=== PATIENT | female | born 1955 | race Caucasian/White ===

== ENCOUNTER → 2018-07-19 | Outpatient (CLI) | payer BC ==
--- NOTE | 2018-07-19 10:50 | US ---
EXAMINATION TYPE: US abdomen limited DATE OF EXAM: 07/19/2018 COMPARISON: NONE CLINICAL HISTORY: 63-year-old female R19.02 Left abdominal Mass. Palpable, bulging area seen left of umbilicus, possible hernia per patient, no pain involved, unknown how long it has been there. TECHNIQUE: Targeted ultrasound examination of the left periumbilical region at the site of visual abn ormality. FINDINGS: Large, septated cystic lesion underlying the palpable area of concern. Dimension of 22.4 x 14.6 x 12. 7cm. This area has no discernible origin that was seen by ultrasound today. Scanned left adnexa and s aw no obvious connection. IMPRESSION: Large 22.4 x 14.6 cm multi septated cystic lesion underlying the left abdominal palpable abnormality. Contrast enhanced CT recommended to further evaluate and determine etiology.
== END | disposition home or self-care (01) ==
LOC: RADUSWWP 08:17
PROVIDERS: ATTEND Internal Medicine Rheumatology
DX: R19.05 Periumbilic swelling, mass or lump (principal)
CPT/HCPCS: 76705

== ENCOUNTER 2018-11-01 10:40 | Inpatient (IN) | payer BC ==
[2018-10-25 15:50] VITALS: BMI 22.9
[~2018-11-01 10:40] MED LIST: DEXAMETHASONE SOD PHOSPHATE 10 MG/ML 1 ML VIAL IV ONE; HEPARIN SODIUM,PORCINE 5,000 UNIT/ML 1 ML VIAL SQ ONE; LIDOCAINE 1% 20 ML VIAL (10MG/ML) FOR IV START INTRADERMA PRN; MIDAZOLAM 2 MG/2 ML VIAL IV PRN; fentaNYL (PF) 50 MCG/ML 2 ML AMP IV PRN
[2018-11-01] MEDS: LACTATED RINGERS 1,000 ML IV SCH (11:28)
--- NOTE | 2018-11-01 11:28 | P.GSHP ---
History of Present Illness H&P Date: 11/01/18 Chief Complaint: Ventral hernia, abdominal cyst This is a 61-year-old female developed a ventral hernia. The hernia located in the midline near the umbilicus. She also has a left lower quadrant intra-abdominal cyst. Patient presents today for repair of ventral hernia and possible excision of intra-abdominal cyst. Past Medical History Past Medical History: Rheumatoid Arthritis (RA) Additional Past Medical History / Comment(s): "Was told by one doctor that I have a heart murmur, have never been told that by any other doctor, so I don't know if it's true." "I don't know what's going on, I've been to 3 [address] dr's and no one can tell me what's wrong, one Dr said I had poor kidney function in one kidney and that I have this mass in my abdomen that keeps getting bigger." History of Any Multi-Drug Resistant Organisms: None Reported Past Surgical History: No Surgical Hx Reported Additional Past Anesthesia/Blood Transfusion Reaction / Comment(s): Has never had general anesthesia. Past Psychological History: No Psychological Hx Reported Smoking Status: Never smoker Past Alcohol Use History: Rare Past Drug Use History: None Reported - Past Family History Mother Family Medical History: No Reported History Medications and Allergies Home Medications Medication Instructions Recorded Confirmed Type Arthritis Med (Unknown Name) 1 tab PO DIRECTED 10/25/18 10/25/18 History Ascorbic Acid [Vitamin C] 500 mg PO DAILY 10/25/18 10/25/18 History Vitamin B Complex 1 each PO DAILY 10/25/18 10/25/18 History Allergies Allergy/AdvReac Type Severity Reaction Status Date / Time No Known Allergies Allergy Verified 11/01/18 11:11 Surgical - Exam Vital Signs Temp Pulse Resp BP Pulse Ox 98.2 F 66 16 147/112 100 11/01/18 11:14 11/01/18 11:14 11/01/18 11:14 11/01/18 11:14 11/01/18 11:14 - General well developed, no distress - Eyes PERRL - ENT normal pinna - Neck no masses - Respiratory normal expansion - Cardiovascular Rhythm: regular - Abdomen 5 cm ventral hernia located in the subumbilical position. There is a 10 cm cystic mass palpable in the left lower quadrant. Abdomen: soft, non tender Assessment and Plan Assessment: Original hernia Antral bowel cyst We'll perform repair of ventral hernia possible excision of intra-abdominal cyst.
[2018-11-01] MEDS ORDERED: ONDANSETRON 4 MG/2 ML VIAL IVP ONE (11:36)
[2018-11-01] MEDS ORDERED: DEXAMETHASONE SOD PHOSPHATE 10 MG/ML 1 ML VIAL IV ONE (11:36)
[2018-11-01] MEDS ORDERED: MIDAZOLAM (PF) 2 MG/2 ML VIAL IV ONE (11:41)
[2018-11-01] MEDS ORDERED: ROPIVACAINE 5 MG/ML 30 ML VIAL ONE (11:45)
[2018-11-01] MEDS ORDERED: ESMOLOL 100 MG/10 ML VIAL ONE (11:45)
[2018-11-01] MEDS ORDERED: LIDOCAINE 1%-EPI 1:100,000 20 ML VIAL SQ ONE (11:54)
--- NOTE | 2018-11-01 12:04 | P.PN ---
Progress Note - Text Progress Note Date: 11/01/18 The patient was brought to the operating room. When she was docked to the monitors in the operating room she is noted to be tachycardic with pulse in the 140-150 range. At this point her procedure was canceled. Patient was sent to recovery room for cardiology consultation.
[2018-11-01] MEDS ORDERED: LACTATED RINGERS 1,000 ML IV ONE (12:12)
--- NOTE | 2018-11-01 12:54 | P.CRDCN ---
History of Present Illness History of present illness: This is a 63-year-old female past medical history significant for rheumatoid arthritis. She denies history of hypertension, dyslipidemia, coronary artery disease or diabetes mellitus. She is quite adamant that she has no previous medical history and does not take medications. She is here in the hospital for an elective outpatient ventral hernia repair with Dr. Garcia. We have been asked to see her in consultation secondary to tachycardia. She was being taken into the OR and prior to anesthesia administration her heart rate was noted to be 150. EKG was obtained revealing atrial fibrillation with rapid ventricular response and non-specific ST abnormalities. Patient is quite tearful and aggressive during exam. She is quite hesitant to have anything done and is considering signing out against medical advice. She denies feeling palpitations. No chest pain, shortness of breath or dizziness. She states she is under significant amount of stress regarding this operation. At the time of my exam: CONSTITUTIONAL: Denies fever. Denies chills. EYES: Denies blurred vision. Denies vision changes. Denies eye pain. EARS, NOSE, MOUTH & THROAT: Denies headache. Denies sore throat. Denies ear pain. CARDIOVASCULAR: Denies chest pain. Denies shortness of breath. Denies orthopnea. Denies PND. Denies palpitations. RESPIRATORY: Denies cough. GASTROINTESTINAL: Denies abdominal pain. Denies diarrhea. Denies constipation. Denies nausea. Denies vomiting. MUSCULOSKELETAL: Denies myalgias. INTEGUMENTARY: Denies pruitis. Denies rash. NEUROLOGIC: Denies numbness. Denies tingling. Denies weakness. PSYCHIATRIC: Denies anxiety. Denies depression. ENDOCRINE: Denies fatigue. Denies weight change. Denies polydipsia. Denies polyurina. GENITOURINARY: Denies burning, hematuria or urgency with micturation. HEMATOLOGIC: Denies history of anemia. Denies bleeding. Blood pressure 145/89 heart rate 170 GENERAL: This is a 63-year-old female in no apparent distress at the time of my examination. HEENT: Head is atraumatic, normocephalic. Pupils are equal, round. Sclerae an icteric. Conjunctivae are clear. Mucous membranes of the mouth are moist. Neck is supple. There is no jugular venous distention. No carotid bruit is heard. LUNGS: Clear to auscultation no wheezes, rales or rhonchi. No chest wall tenderness is noted on palpation or with deep breathing. HEART: Irregular rate and rhythm with systolic ejection murmur at the left sternal border, no rubs or gallops. S1 and S2 heard. ABDOMEN: Soft, nontender. Bowel sounds are heard. No organomegaly noted. EXTREMITIES: No evidence of peripheral edema and no calf tenderness noted. VASCULAR: Radial and dorsalis pedis pulses palpated, no evidence of clubbing. NEUROLOGIC: Patient is awake, alert and oriented x3. ASSESSMENT New onset paroxysmal atrial fibrillation with rapid ventricular response Ventral hernia Rheumatoid arthritis PLAN After leaving disaster recovery coordinator called to notify she spontaneously converted to sinus. Repeat EKG requested. Obtain 2D echocardiogram and doppler study to assess cardiac structure and function. Check electrolytes and TSH. Initiate on small dose of lopressor 25 mg BID. If echo and lytes are normal she may proceed with scheduled surgery. Recommend eliquis 5 mg BID to be initiated after surgery for thromboembolic protection. This has been explained to the patient in great detail. Further recommendations to follow based on clinical course. Thank you kindly for this consultation. Nurse Practitioner note has been reviewed, I agree with a documented findings and plan of care. Patient was seen and examined. Past Medical History Past Medical History: Rheumatoid Arthritis (RA) Additional Past Medical History / Comment(s): "Was told by one doctor that I have a heart murmur, have never been told that by any other doctor, so I don't know if it's true." "I don't know what's going on, I've been to 3 [address] dr's and no one can tell me what's wrong, one Dr said I had poor kidney function in one kidney and that I have this mass in my abdomen that keeps getting bigger." History of Any Multi-Drug Resistant Organisms: None Reported Past Surgical History: No Surgical Hx Reported Additional Past Anesthesia/Blood Transfusion Reaction / Comment(s): Has never had general anesthesia. Past Psychological History: No Psychological Hx Reported Smoking Status: Never smoker Past Alcohol Use History: Rare Past Drug Use History: None Reported - Past Family History Mother Family Medical History: No Reported History Medications and Allergies Home Medications Medication Instructions Recorded Confirmed Type Arthritis Med (Unknown Name) 1 tab PO DIRECTED 10/25/18 10/25/18 History Ascorbic Acid [Vitamin C] 500 mg PO DAILY 10/25/18 10/25/18 History RX: Vitamin B Complex 1 each PO DAILY 10/25/18 10/25/18 History Allergies Allergy/AdvReac Type Severity Reaction Status Date / Time No Known Allergies Allergy Verified 11/01/18 11:11 Physical Exam Vitals: Vital Signs Temp Pulse Resp BP Pulse Ox 11/01/18 11:37 145/89 11/01/18 11:14 98.2 F 66 16 147/112 100 Intake and Output 10/31/18 11/01/18 11/01/18 22:59 06:59 14:59 Intake Total 1000 Balance 1000 Intake: IV 1000 Results Current Medications Generic Name Dose Route Start Last Admin Trade Name Freq PRN Reason Stop Dose Admin Lactated Ringer's 1,000 mls @ 20 mls/hr 10/29/18 13:30 11/01/18 11:28 Lactated Ringers IV 1,000 mls .Q24H SABINO Administration Lidocaine HCl 0.1 ml 10/29/18 13:16 11/01/18 11:28 .Xylocaine 1% Inj (10mg/Ml) For Iv Start INTRADERMA 0.1 ml PER PROTOCOL PRN Administration IV Start Metoprolol Tartrate 25 mg 11/01/18 13:00 Lopressor PO BID SABINO Intake and Output 10/31/18 11/01/18 11/01/18 22:59 06:59 14:59 Intake Total 1000 Balance 1000 Intake: IV 1000
[2018-11-01 13:00] LABS: Anisocytosis Slight; Basophils # (A) 0.1 k/uL (0-0.2); Basophils % (A) 1 %; Eosinophils # (A) 0.2 k/uL (0-0.7); Eosinophils % (A) 5 %; HCT 37.8 % (34.0-46.0); HGB 12.1 gm/dL (11.4-16.0); Lymphocytes % (A) 21 %; MCH 25.7 pg (25.0-35.0); MCV 80.3 fL (80.0-100.0); Mean Platelet Volume 7.1; Microcytosis Slight; Monocytes # (A) 0.3 k/uL (0-1.0); Monocytes % (A) 7 %; Neutrophils # (A) 3.2 k/uL (1.3-7.7); Neutrophils % (A) 64 %; Platelet Count 290 k/uL (150-450); RDW 17.7 % (11.5-15.5); WBC 4.9 k/uL (3.8-10.6)
[2018-11-01] MEDS ORDERED: METOPROLOL TARTRATE 25 MG TAB PO SCH (13:00)
[2018-11-01 13:06] LABS: Calcium 9.8 mg/dL (8.4-10.2); Potassium 3.6 mmol/L (3.5-5.1)
[2018-11-01] MEDS ORDERED: PROPAFENONE 150 MG TAB PO STA (13:26)
[2018-11-01] MEDS ORDERED: METOPROLOL TARTRATE 5 MG/5 ML VIAL IVP ONE ×3 (13:56→14:47)
[2018-11-01] MEDS: APIXABAN 5 MG TAB PO SCH (14:10)
[2018-11-02] MEDS: APIXABAN 5 MG TAB PO SCH ×3 (00:06→08:33)
[2018-11-02] MEDS: METOPROLOL TARTRATE 25 MG TAB PO SCH ×4 (00:06→08:33)
[2018-11-02] MEDS: FLECAINIDE 50 MG TAB PO SCH ×2 (00:15→08:33)
[2018-11-02] MEDS: LACTATED RINGERS 1,000 ML IV SCH ×3 (00:54→06:21)
[2018-11-02 11:43] VITALS: TEMP 97.8
--- NOTE | 2018-11-02 12:06 | P.PN ---
Progress Note - Text Progress Note Date: 11/02/18 The patient feels well. She denies any tachycardia today. On exam her vital signs are stable. Soft. Patiently discharged home today.
--- NOTE | 2018-11-02 12:07 | P.DS ---
Providers Date of admission: 11/01/18 15:52 Expected date of discharge: 11/02/18 Attending physician: Logan Blakely Consults: 11/01/18 12:15 Consult Physician Stat Consulting Provider: Aries Boateng Consult Reason/Comments: SVT Do you want consulting provider notified?: Yes Primary care physician: Horacio Pal[facility] Course: This is a 63-year-old female who was scheduled for hernia repair. Patient's case was canceled due to significant tachycardia related to uncontrolled A. fib. Patient was another cardiology. Patient was discharged home after 24 hours. Patient Condition at Discharge: Good Plan - Discharge Summary Discharge Rx Participant: No New Discharge Prescriptions: No Action Ascorbic Acid [Vitamin C] 500 mg PO DAILY Vitamin B Complex 1 each PO DAILY Discharge Medication List Ascorbic Acid [Vitamin C] 500 mg PO DAILY 10/25/18 [History] Vitamin B Complex 1 each PO DAILY 10/25/18 [History] Follow up Appointment(s)/Referral(s): Logan Blakely MD [STAFF PHYSICIAN] - 11/09/18 2:25 pm Activity/Diet/Wound Care/Special Instructions: pt qualifies for $10/mo loc[facility] miranda coujono
--- NOTE | 2018-11-02 12:58 | P.PN ---
Subjective Progress Note Date: 11/02/18 This is a 63-year-old female past medical history significant for rheumatoid arthritis. She denies history of hypertension, dyslipidemia, coronary artery disease or diabetes mellitus. She is quite adamant that she has no previous medical history and does not take medications. Cardiology consu ltation was requested yesterday, patient was scheduled to go and have an elective ventral hernia repair, prior to the surgery starting she was in atrial fibrillation with a heart rate of 150. She did spontaneously convert to sinus and again went into atrial fibrillation. The patient was given a dose of Rythmol yesterday, converted to normal sinus rhythm. She remains in a normal sinus rhythm this morning. Echocardiogram with Doppler study is yet pending. Blood pressure 140/80 with a heart rate in the 60s, 97% on room air. Patient will continue on Eliquis 5 mg one tablet by mouth twice a day along with flecainide 50 twice a day and metoprolol 25 mg by mouth twice a day. She may be able to be discharged home today from our perspective, we will make her a follow-up appointment to see Dr. adam galloway in the office post discharge. Within one month or so patient will be able to have her elective surgery. This will be discussed in more detail at the follow-up appointment. Objective - Vital Signs Vital signs: Vital Signs Temp 97.8 F 11/02/18 08:00 Pulse 66 11/02/18 08:00 Resp 15 11/02/18 08:00 BP 155/84 11/02/18 08:00 Pulse Ox 99 11/02/18 08:00 Intake & Output 11/01/18 11/02/18 11/02/18 18:59 06:59 18:59 Intake Total 1000 600 Balance 1000 600 Weight 72.1 kg Intake: IV 1000 Oral 600 Other: Voiding Method Toilet # Voids 2 - Exam PHYSICAL EXAMINATION: GENERAL: 63-year-old female in no acute distress at the time of my examination HEENT: Head is atraumatic, normocephalic. Pupils equal, round. Sclera anicteric. Conjunctiva are clear. Mucous membranes of the mouth are moist. Neck is supple. There is no elevated jugular venous pressure. No carotid bruit is heard. HEART EXAMINATION: Heart S1 S2 1 systolic ejection murmur is heard CHEST EXAMINATION: Lungs are clear to auscultation and precussion. No chest wall tenderness is noted on palpation or with deep breathing. ABDOMEN: Soft, nontender. Bowel sounds are heard. No organomegaly noted. EXTREMITIES: 2+ peripheral pulses with no evidence of peripheral edema and no calf tenderness noted. NEUROLOGIC patient is awake, alert and oriented 3 . - Labs CBC & Chem 7: 11/01/18 07:53 11/01/18 07:53 Labs: Abnormal Lab Results - Last 24 Hours (Table) 11/01/18 Range/Units 07:53 RDW 17.7 H (11.5-15.5) % Assessment and Plan Plan: Assessment and plan #1 paroxysmal atrial fibrillation #2 ventral hernia requiring elective surgery #3 rheumatoid arthritis Plan From cardiology's perspective, the patient may be able to be discharged home today. We'll make her a follow-up appointment in the office in one week. Discharged home on flecainide and beta scarlett along with Eliquis. DNP note has been reviewed, I agree with a documented findings and plan of care. Patient was seen and examined.
--- NOTE | 2018-11-02 13:36 | ECHOF ---
Referral Reason: MEASUREMENTS -------- HEIGHT: 0.0 cm WEIGHT: 0.0 kg BP: IVSd: 1.5 cm (0.6 - 1.1) LVIDd: 3.1 cm (3.9 - 5.3) LVPWd: 1.4 cm (0.6 - 1.1) IVSs: 1.6 cm LVIDs: 2.0 cm LVPWs: 1.6 cm Ao Diam: 3.4 cm (2.0 - 3.7) AV Cusp: 1.8 cm (1.5 - 2.6) LA Diam: 3.4 cm (2.7 - 3.8) MV E Husam: 0.97 m/s MV DecT: 164 ms MV A Husam: 0.65 m/s MV E/A Ratio: 1.48 RAP: 5.00 mmHg RVSP: 16.24 mmHg FINDINGS -------- Atrial fibrillation. This was a technically adequate study. The left ventricular size is normal. There is moderate concentric left ventricular hypertrophy. O verall left ventricular systolic function is normal with, an EF between 55 - 60 %. The right ventricle is normal in size. Normal LA size by volume 22+/-6 ml/m2. The right atrial size is normal. Interatrial and interventricular septum intact. The aortic valve is trileaflet and appears structurally normal. The mitral valve is normal. There is trace mitral regurgitation. The tricuspid valve appears structurally normal. Trace tricuspid regurgitation present. There is no pulmonic regurgitation present. The aortic root size is normal. Normal inferior vena cava with normal inspiratory collapse consistent with estimated right atrial pre ssure of 5 mmHg. There is no pericardial effusion. CONCLUSIONS -------- 1. Atrial fibrillation. 2. This was a technically adequate study. 3. The left ventricular size is normal. 4. There is moderate concentric left ventricular hypertrophy. 5. Overall left ventricular systolic function is normal with, an EF between 55 - 60 %. 6. The right ventricle is normal in size. 7. Normal LA size by volume 22+/-6 ml/m2. 8. The right atrial size is normal. 9. Interatrial and interventricular septum intact. 10. The aortic valve is trileaflet and appears structurally normal. 11. The mitral valve is normal. 12. There is trace mitral regurgitation. 13. The tricuspid valve appears structurally normal. 14. Trace tricuspid regurgitation present. 15. There is no pulmonic regurgitation present. 16. The aortic root size is normal. 17. Normal inferior vena cava with normal inspiratory collapse consistent with estimated right atrial pressure of 5 mmHg. 18. There is no pericardial effusion. VIDEO SYSTEM REPAIRER: Anita Tovar RDCS
[2018-11-02 15:05] VITALS: BP 102/63; PULSE 68; RESP 16
[2018-11-02] MEDS ORDERED: METOPROLOL TARTRATE 25 MG TAB PO SCH (21:00)
== END 2018-11-02 14:55 | disposition home or self-care (01) | DRG 310 ==
LOC: OR 10:40 → 3SCARD 15:52
PROVIDERS: ADMIT Surgery; ATTEND Surgery
DX: I48.0 Paroxysmal atrial fibrillation (principal); Z53.9 Procedure and treatment not carried out, unspecified reason; K43.9 Ventral hernia without obstruction or gangrene; M06.9 Rheumatoid arthritis, unspecified; M19.90 Unspecified osteoarthritis, unspecified site; Z79.899 Other long term (current) drug therapy
CPT/HCPCS: 80048; 83735; 85025; 93005; 93306

== ENCOUNTER → 2019-01-15 | Outpatient (CLI) | payer BC ==
--- NOTE | 2019-01-17 08:07 | CT ---
EXAMINATION TYPE: CT abdomen pelvis w con DATE OF EXAM: 01/15/2019 COMPARISON: 08/24/2018 HISTORY: K65.1 Peritoneal cyst, K42.0 Umbilical hernia CONTRAST: CT scan of the abdomen and pelvis is performed with Oral Contrast and with IV Contrast, patient injec devante with 100 mL of Isovue 300. FINDINGS: LUNG BASES-: No visible nodule. No infiltrate. LIVER/GB: No calcified gallstones. 3 or 4 hepatic cysts are again noted the largest of which is see n within the left hepatic lobe lateral segment measuring 1.5 cm. Biliary tree is of normal caliber. PANCREAS: No inflammation. No distinct mass. SPLEEN: No splenic enlargement. No lesion seen. ADRENALS: No nodule. No thickening. KIDNEYS/BLADDER: Marked left-sided hydronephrosis is much improved although is considered severe at t his time. There is renal parenchymal thinning. Decreased perfusion of the left kidney. No nephrolithi asis. No distinct renal mass. Urinary bladder grossly unremarkable. BOWEL: Normal appendix. Normal bowel caliber. No inflammation. GENITAL ORGANS: No gross abnormality. LYMPH NODES: No greater than 1cm abdominal or pelvic lymph nodes are appreciated. AORTA: No significant abnormality. OSSEOUS STRUCTURES: No significant abnormality is seen. OTHER: Small fat-containing umbilical hernia. IMPRESSION: 1. Marked left-sided hydronephrosis is much improved although is considered severe at this time. Ther e is renal parenchymal thinning. Decreased perfusion of the left kidney. 2. Small fat-containing umbilical hernia.
== END | disposition home or self-care (01) ==
LOC: RADCTMAIN 10:49
PROVIDERS: ATTEND Surgery
DX: N13.30 Unspecified hydronephrosis (principal); K42.9 Umbilical hernia without obstruction or gangrene; R93.429 Abnormal radiologic findings on diagnostic imaging of unspecified kidney; R93.422 Abnormal radiologic findings on diagnostic imaging of left kidney
CPT/HCPCS: 74177; Q9967

== ENCOUNTER 2019-02-22 08:14 | Day surgery (SDC) | payer BC ==
[~2019-02-22 08:14] MED LIST changes: +HYDROmorphone 0.5 MG/0.5 ML SYRINGE IVP PRN; +LACTATED RINGERS 1,000 ML IV SCH; +ONDANSETRON 4 MG/2 ML VIAL IVP ONE; +SCOPOLAMINE 1.5MG/72HR PATCH TRANSDERM ONE; -fentaNYL (PF) 50 MCG/ML 2 ML AMP IV PRN
[2019-02-22 08:42] VITALS: TEMP 97.9
[2019-02-22 09:09] LABS: Basophils # (A) 0.1 k/uL (0-0.2); Basophils % (A) 1 %; Eosinophils # (A) 0.3 k/uL (0-0.7); Eosinophils % (A) 6 %; HCT 37.5 % (34.0-46.0); HGB 12.4 gm/dL (11.4-16.0); Lymphocytes # (A) 1.2 k/uL (1.0-4.8); Lymphocytes % (A) 20 %; MCH 27.5 pg (25.0-35.0); MCHC 33.2 g/dL (31.0-37.0); MCV 82.8 fL (80.0-100.0); Mean Platelet Volume 7.6; Monocytes # (A) 0.4 k/uL (0-1.0); Monocytes % (A) 7 %; Neutrophils # (A) 3.7 k/uL (1.3-7.7); Neutrophils % (A) 64 %; Platelet Count 344 k/uL (150-450); RBC 4.53 m/uL (3.80-5.40); RDW 13.5 % (11.5-15.5); WBC 5.8 k/uL (3.8-10.6)
[2019-02-22] MEDS ORDERED: MIDAZOLAM 2 MG/2 ML VIAL IV ONE (09:22)
--- NOTE | 2019-02-22 10:12 | P.GSHP ---
History of Present Illness H&P Date: 02/22/19 Chief Complaint: Incarcerated umbilical hernia This is a 64-year-old female who presents today for laparoscopic robotic- assisted repair of incarcerated umbilical hernia. Patient developed a 3 cm mass at her umbilicus. Past Medical History Past Medical History: Atrial Fibrillation, Rheumatoid Arthritis (RA) Additional Past Medical History / Comment(s): "Was told by one doctor that I have a heart murmur, have never been told that by any other doctor, so I don't know if it's true." one Dr said I had poor kidney function in one kidney possible fluid filled kidney by CT scan that has resolved History of Any Multi-Drug Resistant Organisms: None Reported Past Surgical History: No Surgical Hx Reported Past Anesthesia/Blood Transfusion Reactions: No Reported Reaction Additional Past Anesthesia/Blood Transfusion Reaction / Comment(s): Has never had general anesthesia. Smoking Status: Never smoker - Past Family History Mother Family Medical History: No Reported History Medications and Allergies Home Medications Medication Instructions Recorded Confirmed Type Flecainide [Tambocor] 100 mg PO BID 02/21/19 02/22/19 History Metoprolol Tartrate [Lopressor] 25 mg PO DAILY 02/21/19 02/22/19 History Allergies Allergy/AdvReac Type Severity Reaction Status Date / Time No Known Allergies Allergy Verified 02/22/19 08:35 Surgical - Exam Vital Signs Temp Pulse Resp BP Pulse Ox 97.9 F 64 18 158/99 97 02/22/19 08:40 02/22/19 08:40 02/22/19 08:40 02/22/19 08:40 02/22/19 08:40 - General well developed, well nourished, no distress - Eyes PERRL - ENT normal pinna, normal nares - Neck no masses - Respiratory normal expansion - Cardiovascular Rhythm: regular - Abdomen Abdomen: soft, non tender Hernia: umbilical (Incarcerated umbilical hernia) Results - Labs 02/22/19 08:56 Assessment and Plan Assessment: Incarcerated umbilical hernia. We'll perform laparoscopic robotic-assisted repair.
[2019-02-22] MEDS ORDERED: KETOROLAC 30 MG/ML 1 ML VIAL ONE (10:37)
[2019-02-22] MEDS ORDERED: KETAMINE 10 MG/ML 20 ML VIAL ONE (10:37)
[2019-02-22] MEDS ORDERED: NEOSTIGMINE 1 MG/ML 10 ML VIAL ONE (10:37)
[2019-02-22] MEDS ORDERED: ePHEDrine SULFATE/0.9% NACL/PF 50 MG/5 ML SYRINGE IV ONE (10:37)
[2019-02-22] MEDS ORDERED: SUCCINYLCHOLINE CHLORIDE 100 MG/5 ML SYR IV ONE (10:37)
[2019-02-22] MEDS ORDERED: MIDAZOLAM 2 MG/2 ML VIAL ONE (10:37)
[2019-02-22] MEDS ORDERED: LIDOCAINE 1% INJ 10MG/ML (20 ML MDV) ONE (10:37)
[2019-02-22] MEDS ORDERED: fentaNYL (PF) 50 MCG/ML 2 ML AMP ONE (10:37)
[2019-02-22] MEDS ORDERED: ROPIVACAINE 5 MG/ML 30 ML VIAL ONE (10:37)
[2019-02-22] MEDS ORDERED: PROPOFOL 10 MG/ML 20 ML VIAL IV ONE (10:37)
[2019-02-22] MEDS ORDERED: GLYCOPYRROLATE 0.2 MG/ML 2 ML VIAL ONE (10:37)
[2019-02-22] MEDS ORDERED: ROCURONIUM BROMIDE 10 MG/ML 10 ML VIAL IV ONE (10:37)
--- NOTE | 2019-02-22 10:37 | P.ANPRN ---
Procedure Note - Anesthesia - Nerve Block Performed Bilateral Transversus Abdominis Single Time Out Performed: Yes Date of Procedure: 02/22/19 Procedure Start Time: Procedure Stop Time: Location of Patient: PreOp Indication: Acute Post-Operative Pain, Analgesia, Requested by Surgeon Sedation Type: Sedate with meaningful contact maintained Preparation: Sterile Prep Position: Supine Catheter: None Needle Types: Pajunk Needle Gauge: 21 Ultrasound used to visualize needle placement: Yes Ultrasound used to observe medication spread: Yes Injectate: 0.5% Ropivacaine (see comment for volume) (15cc each side) Blood Aspirated: No Pain Paresthesia on Injection Noted: No Resistance on Injection: Normal Image Stored and Saved: Yes Events: Uneventful and Well Tolerated
[2019-02-22] MEDS ORDERED: BUPIVACAIN-EPI 0.25%-1:200,000 30 ML VIAL SQ ONE ×2 (10:40)
[2019-02-22] MEDS ORDERED: LACTATED RINGERS 1,000 ML IV ONE (11:11)
--- NOTE | 2019-02-22 11:27 | P.OP ---
Date of Procedure: 02/22/19 Preoperative Diagnosis: Incarcerated umbilical hernia Postoperative Diagnosis: Incarcerated umbilical hernia Procedure(s) Performed: Laparoscopic robotic repair of incarcerated umbilical hernia Anesthesia: ELPIDIO Surgeon: Logan Blakely Estimated Blood Loss (ml): 5 Pathology: other (Incarcerated omentum) Condition: stable Disposition: PACU Description of Procedure: MThe patient was placed on the operating table in the supine position. He received general anesthesia. His abdomen was prepped and draped usual fashion. Using a 5 mm optical trocar under direct visualization the peritoneal cavity was entered in the left upper quadrant. The abdomen was then insufflated. The laparoscope was placed back into the perineal cavity. Next a 8 mm robotic trocar was placed in the left lower quadrant and a 12 mm robotic trocar was placed in the left lateral position. The original 5 mm trocar was exchanged for a 8 mm robotic trocar. The patient's placed in the left side up position. And the patient was undocked the robot. The umbilical hernia was visualized. Using hook cautery the incarcerated omentum was dissected free and sent to pathology. Using hook cautery the peritoneum over the umbilical hernia was excised. The fascial opening was repaired using 0V LOC suture. Next a piece of 11 cm round ventral light ST mesh was placed into the. Cavity and secured with 2 OV lock suture. The patient was undocked the robot. The needles were retrieved. The fascia of the 12 mm trocar site was closed with 0 Ethibond suture. Skin was closed interrupted 3-0 Monocryl suture. Dermabond dressings was applied. Patient top procedure well and was sent to recovery room stable condition.
[2019-02-22 12:35] VITALS: RESP 16
[2019-02-22 13:00] VITALS: BP 136/82; PULSE 66
== END 2019-02-22 13:46 | disposition home or self-care (01) ==
LOC: OR 08:14
PROVIDERS: ATTEND Surgery
DX: K42.0 Umbilical hernia with obstruction, without gangrene (principal); I48.91 Unspecified atrial fibrillation; M06.9 Rheumatoid arthritis, unspecified; Z79.899 Other long term (current) drug therapy
CPT/HCPCS: 64488; 88305; 85025; 49653; C1781; J2250; J1644; J1100; J2710; J0690; J2405; J2001; J3010; J1885; J2795; J0330; J2704

== ENCOUNTER 2019-02-27 23:59 | Observation (INO) | payer BC ==
--- NOTE | 2019-02-28 00:38 | ED ---
Arrhythmia/Palpitations HPI - General Chief Complaint: Arrhythmia/Palpitations Stated Complaint: Palpitations Time Seen by Provider: 02/28/19 00:07 Source: patient, family Mode of arrival: wheelchair Limitations: no limitations - History of Present Illness Initial Comments: this patient is a 64-year-old woman who presents because she believes she has sloan d a recurrence of atrial fibrillation. The patient states that she had surgery approximately a week ago. She had a hernia repair (02/22/[address] Blakely), and has been doing well since that time. Tonight she had been at home, relaxing when she noticed that her heart started beating rapidly and irregularly. She does have history of having a paroxysm of atrial fibrillation a few weeks ago, when she was being prepped for surgery initially. The patient states that her surgery was delayed, she had cardiology clearance. She had gone back into sinus rhythm and had remained in sinus rhythm. The patient states that after she was cleared for surgery she had been given metoprolol and Shamika anaide to take for 1 week prior to surgery and then to continue weeks post surgery. she states she had taken the medication as directed but believes she has gone back in atrial fibrillation. Complaint: rapid heart beat -: hour(s) Context: occurred during rest Arrhythmia History: atrial fibrillation (paroxysmal) Associated Symptoms: denies other symptoms - Related Data Home Medications Medication Instructions Recorded Confirmed Flecainide Acetate 100 mg PO BID 02/28/19 02/28/19 Metoprolol Succinate (ER) [Toprol 25 mg PO DAILY 02/28/19 02/28/19 XL] Previous Rx's Medication Instructions Recorded Apixaban [Eliquis] 5 mg PO BID #60 tab 02/28/19 Allergies Allergy/AdvReac Type Severity Reaction Status Date / Time No Known Allergies Allergy Verified 02/28/19 09:44 Review of Systems ROS Statement: Those systems with pertinent positive or pertinent negative responses have been documented in the HPI. ROS Other: All systems not noted in ROS Statement are negative. Constitutional: Denies: fever, chills Respiratory: Denies: cough, dyspnea Cardiovascular: Reports: palpitations. Denies: chest pain, edema, syncope Gastrointestinal: Denies: abdominal pain, nausea, vomiting, diarrhea, melena, hematochezia Genitourinary: Denies: dysuria, hematuria Musculoskeletal: Denies: back pain Skin: Denies: rash Neurological: Denies: headache Past Medical History Past Medical History: Atrial Fibrillation, Rheumatoid Arthritis (RA) Additional Past Medical History / Comment(s): "Was told by one doctor that I have a heart murmur, have never been told that by any other doctor, so I don't know if it's true." one Dr said I had poor kidney function in one kidney possible fluid filled kidney by CT scan that has resolved History of Any Multi-Drug Resistant Organisms: None Reported Past Surgical History: Hernia Repair Past Anesthesia/Blood Transfusion Reactions: No Reported Reaction Additional Past Anesthesia/Blood Transfusion Reaction / Comment(s): Has never had general anesthesia. Past Psychological History: No Psychological Hx Reported Smoking Status: Never smoker Past Alcohol Use History: None Reported Past Drug Use History: None Reported - Past Family History Mother Family Medical History: No Reported History Father Additional Family Medical History / Comment(s): Father was a alcoholic and young. General Exam Limitations: no limitations General appearance: alert, in no apparent distress Head exam: Present: atraumatic, normocephalic Eye exam: Present: normal appearance. Absent: scleral icterus, conjunctival injection Neck exam: Present: normal inspection Respiratory exam: Present: normal lung sounds bilaterally. Absent: respiratory distress, wheezes, rales, rhonchi, stridor Cardiovascular Exam: Present: tachycardia, irregular rhythm, normal heart sounds. Absent: systolic murmur, diastolic murmur, rubs, gallop GI/Abdominal exam: Present: soft, other (patient's surgical incisions are closed, dry, intact without any warmth or erythema.). Absent: distended, tenderness, guarding, rebound, rigid, mass, pulsatile mass, hernia Extremities exam: Present: normal inspection, normal capillary refill. Absent: pedal edema, calf tenderness Back exam: Present: normal inspection. Absent: CVA tenderness (R), CVA tenderness (L) Neurological exam: Present: alert Skin exam: Present: warm, dry, intact, normal color. Absent: rash Course Vital Signs 02/28/19 02/28/19 02/28/19 00:01 01:00 02:00 Temperature 97.7 F Pulse Rate 121 H 124 H 128 H Pulse Rate [ Pulse Oximetery ] Respiratory 20 18 18 Rate Blood Pressure 165/92 160/108 149/107 Blood Pressure [Left Arm] O2 Sat by Pulse 96 Oximetry 02/28/19 02/28/19 02/28/19 03:00 04:00 05:00 Temperature Pulse Rate 126 H 117 H 114 H Pulse Rate [ Pulse Oximetery ] Respiratory 18 18 18 Rate Blood Pressure 144/99 128/79 110/94 Blood Pressure [Left Arm] O2 Sat by Pulse Oximetry 02/28/19 02/28/19 06:00 07:15 Temperature 97.7 F Pulse Rate 117 H Pulse Rate [ 80 Pulse Oximetery ] Respiratory 18 16 Rate Blood Pressure 121/91 Blood Pressure 159/94 [Left Arm] O2 Sat by Pulse 98 Oximetry EKG Findings - EKG Results: EKG: interpreted by ERMD, normal axis, normal QRS, normal ST/T - Dysrhythmias: Supraventricular dysrhythmia: atrial fibrillation (with rate approximately 150 bpm) Medical Decision Making - Medical Decision Making patient is 64-year-old woman with paroxysmal atrial fibrillation. She did have recurrence of this tonight with elevated rate. She was given extra doses of flecainide but remained tachycardic in atrial fibrillation. Patient be admitted to have cardiology consultation. - Lab Data Result diagrams: 02/28/19 00:15 02/28/19 00:15 Lab Results 02/28/19 02/28/19 02/28/19 Range/Units 00:15 00:15 00:15 WBC 6.2 (3.8-10.6) k/uL RBC 4.91 (3.80-5.40) m/uL Hgb 13.0 (11.4-16.0) gm/dL Hct 40.8 (34.0-46.0) % MCV 83.2 (80.0-100.0) fL MCH 26.6 (25.0-35.0) pg MCHC 31.9 (31.0-37.0) g/dL RDW 13.4 (11.5-15.5) % Plt Count 358 (150-450) k/uL Neutrophils % 54 % Lymphocytes % 26 % Monocytes % 8 % Eosinophils % 7 % Basophils % 2 % Neutrophils # 3.4 (1.3-7.7) k/uL Lymphocytes # 1.6 (1.0-4.8) k/uL Monocytes # 0.5 (0-1.0) k/uL Eosinophils # 0.4 (0-0.7) k/uL Basophils # 0.1 (0-0.2) k/uL PT 9.6 (9.0-12.0) sec INR 0.9 (<1.2) APTT 25.9 (22.0-30.0) sec Sodium 141 (137-145) mmol/L Potassium 4.1 (3.5-5.1) mmol/L Chloride 108 H (98-107) mmol/L Carbon Dioxide 25 (22-30) mmol/L Anion Gap 8 mmol/L BUN 18 H (7-17) mg/dL Creatinine 0.99 (0.52-1.04) mg/dL Est GFR (CKD-EPI)AfAm 70 (>60 ml/min/1.73 sqM) Est GFR (CKD-EPI)NonAf 61 (>60 ml/min/1.73 sqM) Glucose 98 (74-99) mg/dL Calcium 9.8 (8.4-10.2) mg/dL Magnesium 2.2 (1.6-2.3) mg/dL Total Bilirubin 0.4 (0.2-1.3) mg/dL AST 26 (14-36) U/L ALT 23 (4-34) U/L Alkaline Phosphatase 99 (38-126) U/L Troponin I (0.000-0.034) ng/mL Total Protein 7.3 (6.3-8.2) g/dL Albumin 4.2 (3.5-5.0) g/dL TSH 1.730 (0.465-4.680) mIU/L 02/28/19 Range/Units 00:15 WBC (3.8-10.6) k/uL RBC (3.80-5.40) m/uL Hgb (11.4-16.0) gm/dL Hct (34.0-46.0) % MCV (80.0-100.0) fL MCH (25.0-35.0) pg MCHC (31.0-37.0) g/dL RDW (11.5-15.5) % Plt Count (150-450) k/uL Neutrophils % % Lymphocytes % % Monocytes % % Eosinophils % % Basophils % % Neutrophils # (1.3-7.7) k/uL Lymphocytes # (1.0-4.8) k/uL Monocytes # (0-1.0) k/uL Eosinophils # (0-0.7) k/uL Basophils # (0-0.2) k/uL PT (9.0-12.0) sec INR (<1.2) APTT (22.0-30.0) sec Sodium (137-145) mmol/L Potassium (3.5-5.1) mmol/L Chloride (98-107) mmol/L Carbon Dioxide (22-30) mmol/L Anion Gap mmol/L BUN (7-17) mg/dL Creatinine (0.52-1.04) mg/dL Est GFR (CKD-EPI)AfAm (>60 ml/min/1.73 sqM) Est GFR (CKD-EPI)NonAf (>60 ml/min/1.73 sqM) Glucose (74-99) mg/dL Calcium (8.4-10.2) mg/dL Magnesium (1.6-2.3) mg/dL Total Bilirubin (0.2-1.3) mg/dL AST (14-36) U/L ALT (4-34) U/L Alkaline Phosphatase (38-126) U/L Troponin I <0.012 (0.000-0.034) ng/mL Total Protein (6.3-8.2) g/dL Albumin (3.5-5.0) g/dL TSH (0.465-4.680) mIU/L Disposition Clinical Impression: Paroxysmal atrial fibrillation with rapid ventricular response Disposition: ADMITTED IP TO THIS HOSP Condition: Stable Is patient prescribed a controlled substance at d/c from ED?: No
[2019-02-28] MEDS ORDERED: SODIUM CHLORIDE 0.9% 1,000 ML IV ONE (00:42)
[2019-02-28 00:55] LABS: Basophils # (A) 0.1 k/uL (0-0.2); Basophils % (A) 2 %; Eosinophils # (A) 0.4 k/uL (0-0.7); Eosinophils % (A) 7 %; HCT 40.8 % (34.0-46.0); Lymphocytes # (A) 1.6 k/uL (1.0-4.8); Lymphocytes % (A) 26 %; MCH 26.6 pg (25.0-35.0); MCHC 31.9 g/dL (31.0-37.0); MCV 83.2 fL (80.0-100.0); Mean Platelet Volume 7.3; Monocytes # (A) 0.5 k/uL (0-1.0); Monocytes % (A) 8 %; Neutrophils # (A) 3.4 k/uL (1.3-7.7); Neutrophils % (A) 54 %; Platelet Count 358 k/uL (150-450); RBC 4.91 m/uL (3.80-5.40); RDW 13.4 % (11.5-15.5); WBC 6.2 k/uL (3.8-10.6)
[2019-02-28 01:01] LABS: Albumin 4.2 g/dL (3.5-5.0); Calcium 9.8 mg/dL (8.4-10.2); INR 0.9 (<1.2); Magnesium 2.2 mg/dL (1.6-2.3); Partial Thromboplastin Time 25.9 sec (22.0-30.0); Potassium 4.1 mmol/L (3.5-5.1); Prothrombin Time 9.6 sec (9.0-12.0); Total Bilirubin 0.4 mg/dL (0.2-1.3); Total Protein 7.3 g/dL (6.3-8.2)
[2019-02-28] MEDS ORDERED: SODIUM CHLORIDE 0.9% 500 ML 500 ML IV STA (03:15)
[2019-02-28] MEDS ORDERED: LORazepam 2 MG/ML INJ IV STA (03:15)
[2019-02-28] MEDS ORDERED: ENOXAPARIN 80 MG/0.8 ML SYRINGE SQ STA (05:55)
[2019-02-28] MEDS ORDERED: NITROGLYCERIN SL TABS 0.4 MG TAB SUBLINGUAL PRN (05:58)
[2019-02-28] MEDS ORDERED: HYDROcodone/APAP 5-325MG 1 EACH TAB PO PRN (06:01)
[2019-02-28 08:07] VITALS: RESP 16
[2019-02-28] MEDS ORDERED: FLECAINIDE 50 MG TAB PO SCH (09:00)
[2019-02-28] MEDS ORDERED: DOCUSATE 100 MG CAP PO SCH (09:00)
[2019-02-28] MEDS ORDERED: METOPROLOL TARTRATE 25 MG TAB PO SCH (09:00)
[2019-02-28] MEDS ORDERED: METOPROLOL SUCCINATE (ER) 25 MG TAB.ER.24H PO SCH (09:00)
--- NOTE | 2019-02-28 09:55 | P.CRDCN ---
History of Present Illness Consult date: 02/28/19 Requesting physician: Horacio Palma Consult reason: atrial flutter Chief complaint: Palpitations History of present illness: This is a pleasant 64-year-old female with past medical history significant for rheumatoid arthritis, patient does have a prior history of hypertension, nondiabetic, no hyperlipidemia, nonsmoker, history of paroxysmal atrial fibrillation, she recently underwent a robotic hiatal hernia surgery by Dr. Parson earlier this month, she states that she was directed by Dr. 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 Yesterday the patient states she was up running around doing shopping, going places, forgot to take her medication in the morning, and at 7:30 at night took her dose of flecainide and metoprolol. She does state that prior to taking it she did n otice her heart racing extremely fast. In spite of taking the medication she continued to be in a rapid irregular heartbeat and she came to the emergency room for further evaluation and treatment. Her EKG on arrival here showed typical atrial flutter with rapid ventricular response. Patient was given a subsequent dose of flecainide, and later on a second beta scarlett, subsequently she converted to normal sinus rhythm and remains in a normal sinus rhythm this morning. Patient has a chadsvasc score of 2, and is not on anticoagulation as an outpatient. Her blood pressure on arrival here was 165/92 with a heart rate of 120s to 130s,Blood pressure this morning 159/94 with a heart rate of 80, 98% on room air. Her laboratory data was reviewed, white blood cell count 6.2, hemoglobin 13.0, platelet count 358. Sodium 141, potassium 4.1, BUN 18, creatinine 0.9. 2.2. Troponins are negative 2. TSH level is normal. Past Medical History Past Medical History: Atrial Fibrillation, Rheumatoid Arthritis (RA) Additional Past Medical History / Comment(s): "Was told by one doctor that I have a heart murmur, have never been told that by any other doctor, so I don't know if it's true." one Dr said I had poor kidney function in one kidney possible fluid filled kidney by CT scan that has resolved History of Any Multi-Drug Resistant Organisms: None Reported Past Surgical History: Hernia Repair Past Anesthesia/Blood Transfusion Reactions: No Reported Reaction Additional Past Anesthesia/Blood Transfusion Reaction / Comment(s): Has never had general anesthesia. Past Psychological History: No Psychological Hx Reported Smoking Status: Never smoker Past Alcohol Use History: None Reported Past Drug Use History: None Reported - Past Family History Mother Family Medical History: No Reported History Medications and Allergies Home Medications Medication Instructions Recorded Confirmed Type Flecainide [Tambocor] 100 mg PO BID 02/21/19 02/28/19 History Docusate [Colace] 100 mg PO BID #20 capsule 02/22/19 02/28/19 Rx Metoprolol Succinate (ER) [Toprol 25 mg PO DAILY 02/28/19 02/28/19 History XL] Allergies Allergy/AdvReac Type Severity Reaction Status Date / Time No Known Allergies Allergy Verified 02/28/19 00:05 Physical Exam Vitals: Vital Signs Temp Pulse Pulse Resp BP BP Pulse Ox 02/28/19 08:00 80 16 02/28/19 07:15 97.7 F 80 16 159/94 98 02/28/19 06:00 117 H 18 121/91 02/28/19 05:00 114 H 18 110/94 02/28/19 04:00 117 H 18 128/79 02/28/19 03:00 126 H 18 144/99 02/28/19 02:00 128 H 18 149/107 02/28/19 01:00 124 H 18 160/108 02/28/19 00:01 97.7 F 121 H 20 165/92 96 Intake and Output 02/27/19 02/28/19 02/28/19 22:59 06:59 14:59 Intake Total 20 Balance 20 Intake: IV 20 Invasive Line 1 20 Other: Weight 72.575 kg 58.8 kg PHYSICAL EXAMINATION: GENERAL: 64-year-old female in no acute distress at the time of my examination HEENT: Head is atraumatic, normocephalic. Pupils equal, round. Sclera anicteric. Conjunctiva are clear. Mucous membranes of the mouth are moist. Neck is supple. There is no elevated jugular venous pressure. No carotid bruit is heard. HEART EXAMINATION: Heart S1 and S2 systolic murmur is heard CHEST EXAMINATION:[ Lungs are clear to auscultation and precussion. No chest wall tenderness is noted on palpation or with deep breathing.] ABDOMEN: [ Soft, nontender. Bowel sounds are heard. No organomegaly noted]. EXTREMITIES:[ 2+ peripheral pulses with no evidence of peripheral edema and no calf tenderness noted]. NEUROLOGIC [patient is awake, alert and oriented 3 ] . Results 02/28/19 00:15 02/28/19 00:15 Cardiac Enzymes 02/28/19 02/28/19 02/28/19 Range/Units 00:15 00:15 07:24 AST 26 (14-36) U/L Troponin I <0.012 <0.012 (0.000-0.034) ng/mL Coagulation 02/28/19 Range/Units 00:15 PT 9.6 (9.0-12.0) sec APTT 25.9 (22.0-30.0) sec CBC 02/28/19 Range/Units 00:15 WBC 6.2 (3.8-10.6) k/uL RBC 4.91 (3.80-5.40) m/uL Hgb 13.0 (11.4-16.0) gm/dL Hct 40.8 (34.0-46.0) % Plt Count 358 (150-450) k/uL Comprehensive Metabolic Panel 02/28/19 Range/Units 00:15 Sodium 141 (137-145) mmol/L Potassium 4.1 (3.5-5.1) mmol/L Chloride 108 H (98-107) mmol/L Carbon Dioxide 25 (22-30) mmol/L BUN 18 H (7-17) mg/dL Creatinine 0.99 (0.52-1.04) mg/dL Glucose 98 (74-99) mg/dL Calcium 9.8 (8.4-10.2) mg/dL AST 26 (14-36) U/L ALT 23 (4-34) U/L Alkaline Phosphatase 99 (38-126) U/L Total Protein 7.3 (6.3-8.2) g/dL Albumin 4.2 (3.5-5.0) g/dL Current Medications Generic Name Dose Route Start Last Admin Trade Name Freq PRN Reason Stop Dose Admin Hydrocodone Bitart/Acetaminophen 1 each 02/28/19 06:01 [place] 5-325 PO Q6HR PRN Pain Aspirin 325 mg 03/01/19 09:00 Aspirin PO DAILY SABINO Docusate Sodium 100 mg 02/28/19 09:00 02/28/19 08:18 Colace PO 100 mg BID SABINO Administration Flecainide Acetate 100 mg 02/28/19 09:00 02/28/19 08:18 Tambocor PO 100 mg BID SABINO Administration Metoprolol Succinate 25 mg 02/28/19 09:00 02/28/19 08:19 Toprol Xl PO 25 mg DAILY SABINO Administration Nitroglycerin 0.4 mg 02/28/19 05:58 Nitrostat SUBLINGUAL Q5M PRN Chest Pain Intake and Output 02/27/19 02/28/19 02/28/19 22:59 06:59 14:59 Intake Total 20 Balance 20 Intake: IV 20 Invasive Line 1 20 Other: Weight 72.575 kg 58.8 kg Patient Weight 03/01/19 06:59 Weight 58.8 kg 02/28/19 00:15 02/28/19 00:15 EKG Interpretations (text) Initial EKG on presentation here showed atrial flutter with rapid ventricular response. Assessment and Plan Plan: Assessment and plan #1 atrial flutter with rapid ventricular response, typical, currently in normal sinus rhythm #2 hypertension #3 history of paroxysmal atrial fibrillation #4 recent robotic hiatal hernia surgery Plan Patient had an echocardiogram with Doppler study performed in October, we will repeat an echo at that time it showed a normal LV function. Patient is currently on the flecainide 100 mg by mouth twice a day as well as her metoprolol which we will continue. We will discontinue the aspirin, I did speak with the patient regarding the importance of anticoagulation for stroke prevention. Further recommendations to follow. DNP note has been reviewed, I agree with a documented findings and plan of care. Patient was seen and examined.
[2019-02-28] MEDS ORDERED: APIXABAN 5 MG TAB PO SCH (10:00)
[2019-02-28 13:25] VITALS: BP 127/74; PULSE 78; TEMP 98.2
--- NOTE | 2019-02-28 14:58 | P.HPIM ---
History of Present Illness 64-year-old the female came in with compensative palpitations. Patient had proximal A. fib patient had a recent surgery after which patient went into A. fib patient used to take Toprol-XL at home 25 mg patient was started on flecai nide patient didn't take as recommended at home missed her dose and it up having A. fib came in here patient was given flecainide patient was given IV fluids after which she converted to sinus tachycardia spontaneously followed by conversion to regular sinus rhythm without any tachycardia. Patient is presently clinically doing well her previous echocardiogram is within normal limits patient apparently is hypotensive as per cardiology and considering her being a female and 64 years of age cardiology is recommending anti-coagulation the started her on Eliquis and the this can urine had aspirin. TSH is within normal limits patient is clinically doing well will be discharged today no evidence of sepsis or any kind of infection at this time. Patient is not dehydrated clinically. Review of Systems REVIEW OF SYSTEMS: CONSTITUTIONAL: No fever, no malaise, no fatigue. HEENT: No recent visual problems or hearing problems. Denied any sore throat. CARDIOVASCULAR: No chest pain, orthopnea, PND, no syncope. PULMONARY: No shortness of breath, no cough, no hemoptysis. GASTROINTESTINAL: No diarrhea, no nausea, no vomiting, no abdominal pain. NEUROLOGICAL: No headaches, no weakness, no numbness. HEMATOLOGICAL: Denies any bleeding or petechiae. GENITOURINARY: Denies any burning micturition, frequency, or urgency. MUSCULOSKELETAL/RHEUMATOLOGICAL: Denies any joint pain, swelling, or any muscle pain. ENDOCRINE: Denies any polyuria or polydipsia. The rest of the 14-point review of systems is negative. Past Medical History Past Medical History: Atrial Fibrillation, Asthma, Rheumatoid Arthritis (RA) Additional Past Medical History / Comment(s): "Was told by one doctor that I have a heart murmur, have never been told that by any other doctor, so I don't know if it's true." Was told I have poor or no L kidney function/distended kidney, UTIs, mono at age 17yrs. History of Any Multi-Drug Resistant Organisms: None Reported Past Surgical History: Breast Surgery, Hernia Repair Additional Past Surgical History / Comment(s): 02/22/19 Robot assisted umbilical hernia repair with mesh, L breast benign biopsy. Past Anesthesia/Blood Transfusion Reactions: No Reported Reaction Additional Past Anesthesia/Blood Transfusion Reaction / Comment(s): Has never had general anesthesia. Smoking Status: Never smoker - Past Family History Mother Family Medical History: No Reported History Father Additional Family Medical History / Comment(s): Father was a alcoholic and young. Medications and Allergies Home Medications Medication Instructions Recorded Confirmed Type Apixaban [Eliquis] 5 mg PO BID #60 tab 02/28/19 Rx Flecainide Acetate 100 mg PO BID 02/28/19 02/28/19 History Metoprolol Succinate (ER) [Toprol 25 mg PO DAILY 02/28/19 02/28/19 History XL] Allergies Allergy/AdvReac Type Severity Reaction Status Date / Time No Known Allergies Allergy Verified 02/28/19 09:44 Physical Exam Vitals: Vital Signs Temp Pulse Pulse Resp BP BP Pulse Ox 02/28/19 12:00 98.2 F 78 16 127/74 99 02/28/19 08:00 80 16 02/28/19 07:15 97.7 F 80 16 159/94 98 02/28/19 06:00 117 H 18 121/91 02/28/19 05:00 114 H 18 110/94 02/28/19 04:00 117 H 18 128/79 02/28/19 03:00 126 H 18 144/99 02/28/19 02:00 128 H 18 149/107 02/28/19 01:00 124 H 18 160/108 02/28/19 00:01 97.7 F 121 H 20 165/92 96 Intake and Output 02/27/19 02/28/19 02/28/19 22:59 06:59 14:59 Intake Total 1100 Output Total 600 Balance 500 Intake: IV 40 Invasive Line 1 40 Oral 1060 Output: Urine 600 Other: Weight 72.575 kg 58.8 kg PHYSICAL EXAMINATION: GENERAL: The patient is alert and oriented x3, not in any acute distress. Well developed, well nourished. HEENT: Pupils are round and equally reacting to light. EOMI. No scleral icterus. No conjunctival pallor. Normocephalic, atraumatic. No pharyngeal erythema. No thyromegaly. CARDIOVASCULAR: S1 and S2 present. No murmurs, rubs, or gallops. PULMONARY: Chest is clear to auscultation, no wheezing or crackles. ABDOMEN: Soft, nontender, nondistended, normoactive bowel sounds. No palpable organomegaly. MUSCULOSKELETAL: No joint swelling or deformity. EXTREMITIES: No cyanosis, clubbing, or pedal edema. NEUROLOGICAL: Gross neurological examination did not reveal any focal deficits. SKIN: No rashes. Results CBC & Chem 7: 02/28/19 00:15 02/28/19 00:15 Labs: Abnormal Lab Results - Last 24 Hours (Table) 02/28/19 Range/Units 00:15 Chloride 108 H (98-107) mmol/L BUN 18 H (7-17) mg/dL Thrombosis Risk Factor Assmnt - Choose All That Apply Any of the Below Risk Factors Present?: Yes Other Risk Factors: Yes Each Risk Factor Represents 2 Points: Age 61-74 years Other congenital or acquired thrombophilia - If yes, enter type in comment: No Thrombosis Risk Factor Assessment Total Risk Factor Score: 2 Thrombosis Risk Factor Assessment Level: Low Risk Assessment and Plan Plan: -A. fib with rapid ventricular rate presently rate controlled patient probably has proximal A. fib presently sinus rhythm. Further management as mentioned above patient will be resumed on her home dose of flecainide and Toprol-XL and patient will follow with cardiology as an outpatient and patient was started on anti-correlation -Hypertension -History of adult hernia. Status post repair of this hernia. Patient will be discharged today
--- NOTE | 2019-02-28 14:58 | P.DS ---
Providers Date of admission: 02/28/19 06:01 Attending physician: Horacio Palma Consults: 02/28/19 05:58 Consult Physician Routine Consulting Provider: Anthony Diaz Consult Reason/Comments: Atrial fibrillation with rapid ventricular rate. Do you want consulting provider notified?: Yes Primary care physician: Horacio Palma Hospital Course: Please of her dementia for further details Plan - Discharge Summary Discharge Rx Participant: No New Discharge Prescriptions: New Apixaban [Eliquis] 5 mg PO BID #60 tab Continue Metoprolol Succinate (ER) [Toprol XL] 25 mg PO DAILY Flecainide Acetate 100 mg PO BID Discharge Medication List Apixaban [Eliquis] 5 mg PO BID #60 tab 02/28/19 [Rx] Flecainide Acetate 100 mg PO BID 02/28/19 [History] Metoprolol Succinate (ER) [Toprol XL] 25 mg PO DAILY 02/28/19 [History] Follow up Appointment(s)/Referral(s): Horacio Palma MD [Primary Care Provider] - 03/08/19 11:30 am (Thursday cancelled per pt request) Rober Lutz MD [STAFF PHYSICIAN] - 03/16/19 2:45 pm (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
[2019-03-01] MEDS ORDERED: ASPIRIN 325 MG TAB PO SCH (09:00)
--- NOTE | 2019-03-01 12:01 | ECHOF ---
Referral Reason:atrial flutter MEASUREMENTS -------- HEIGHT: 177.8 cm WEIGHT: 58.5 kg BP: 121/91 RVIDd: 4.3 cm (< 3.3) IVSd: 1.6 cm (0.6 - 1.1) LVIDd: 3.9 cm (3.9 - 5.3) LVPWd: 1.8 cm (0.6 - 1.1) IVSs: 1.6 cm LVIDs: 2.6 cm LVPWs: 2.2 cm LAESV Index (A-L): 33.52 ml/m Ao Diam: 3.1 cm (2.0 - 3.7) AV Cusp: 1.9 cm (1.5 - 2.6) LA Diam: 3.8 cm (2.7 - 3.8) MV EXCURSION: 17.838 mm (> 18.000) MV EF SLOPE: 93 mm/s (70 - 150) EPSS: 0.7 cm MV E Husam: 0.84 m/s MV DecT: 204 ms MV A Husam: 0.67 m/s MV E/A Ratio: 1.25 RAP: 5.00 mmHg RVSP: 34.98 mmHg FINDINGS -------- Sinus rhythm. This was a technically good study. The left ventricular size is normal. There is moderate concentric left ventricular hypertrophy. O verall left ventricular systolic function is normal with, an EF between 55 - 60 %. The diastolic fi lling pattern is normal for the age of the patient 8.06. The right ventricle is severely enlarged. LA is moderately dilated 34-39 ml/m2 The right atrium is mildly enlarged. Interatrial and interventricular septum intact. The aortic valve is trileaflet, and appears structurally normal. No aortic stenosis or regurgitation. The mitral valve is normal. Mild mitral regurgitation is present. Mild tricuspid regurgitation present. There is no evidence of pulmonary hypertension. The right v entricular systolic pressure, as measured by Doppler, is 34.98mmHg. There is no pulmonic regurgitation present. The aortic root size is normal. IVC Not well visulized. There is no pericardial effusion. CONCLUSIONS -------- 1. Sinus rhythm. 2. This was a technically good study. 3. The left ventricular size is normal. 4. There is moderate concentric left ventricular hypertrophy. 5. Overall left ventricular systolic function is normal with, an EF between 55 - 60 %. 6. The diastolic filling pattern is normal for the age of the patient 8.06 7. The right ventricle is severely enlarged. 8. LA is moderately dilated 34-39 ml/m2 9. The right atrium is mildly enlarged. 10. The aortic valve is trileaflet, and appears structurally normal. No aortic stenosis or regurgitat ion. 11. Mild mitral regurgitation is present. 12. Mild tricuspid regurgitation present. 13. There is no evidence of pulmonary hypertension. 14. There is no pulmonic regurgitation present. 15. The aortic root size is normal. 16. IVC Not well visulized. 17. There is no pericardial effusion. PAYMENT SPECIALIST: Misty Hernandez RDCS
== END 2019-02-28 16:03 | disposition home or self-care (01) ==
LOC: EC 23:59 → 3SCARD 02-28 06:01
PROVIDERS: ADMIT Family Medicine; ATTEND Family Medicine
DX: I48.3 Typical atrial flutter (principal); I48.0 Paroxysmal atrial fibrillation; I10 Essential (primary) hypertension; I44.39 Other atrioventricular block; I08.1 Rheumatic disorders of both mitral and tricuspid valves; M06.9 Rheumatoid arthritis, unspecified; J45.909 Unspecified asthma, uncomplicated; Z98.890 Other specified postprocedural states; Z87.440 Personal history of urinary (tract) infections; Z86.19 Personal history of other infectious and parasitic diseases; Z79.899 Other long term (current) drug therapy; Z87.448 Personal history of other diseases of urinary system; Z81.1 Family history of alcohol abuse and dependence
CPT/HCPCS: 93005 ×2; 96361; 96372; 96374; 99285; 36415; 93306; 80053; 83735; 84443; 84484; 85025; 85610; 85730; G0378; J2060; J1650